=== PATIENT | male | born 1945 | race Caucasian/White ===

== ENCOUNTER → 2024-01-10 12:48 | Outpatient (REF) | payer MEDICARE, SELFPAY | LOC: RAD 12:48 | PROVIDERS: ATTENDING PHYSICIAN Surgery Vascular Surgery; FAMILY PHYSICIAN Family Medicine | DX: I65.23 Occlusion and stenosis of bilateral carotid arteries (principal) | CPT/HCPCS: 93880 ==

== ENCOUNTER → 2024-07-17 10:57 | Outpatient (REF) | payer MEDICARE, SELFPAY | LOC: RAD 10:57 | PROVIDERS: ATTENDING PHYSICIAN Surgery Vascular Surgery; FAMILY PHYSICIAN Family Medicine | DX: I65.23 Occlusion and stenosis of bilateral carotid arteries (principal) | CPT/HCPCS: 93880 ==

== ENCOUNTER → 2024-07-24 12:26 | Outpatient (REF) | payer MEDICARE, SELFPAY ==
[2024-07-24 14:22] LABS: Blood Urea Nitrogen 31 mg/dl (9-20); Calcium 9.7 mg/dl (8.4-10.2); Carbon Dioxide 24 mmol/L (22-30); Chloride 103 mmol/L (98-107); Glucose 121 mg/dl (70-99); Potassium 5.1 mmol/L (3.5-5.1); Sodium 140 mmol/L (135-145); eGFR > 60.00
== END ==
LOC: REG 12:26
PROVIDERS: ATTENDING PHYSICIAN Registered Nurse; FAMILY PHYSICIAN Family Medicine
DX: I65.23 Occlusion and stenosis of bilateral carotid arteries (principal)
CPT/HCPCS: 36415; 80048

== ENCOUNTER → 2024-08-06 12:22 | Outpatient (REF) | payer MEDICARE, SELFPAY ==
[2024-08-06 13:40] LABS: Blood Urea Nitrogen 28 mg/dl (9-20); Calcium 9.4 mg/dl (8.4-10.2); Carbon Dioxide 21 mmol/L (22-30); Chloride 105 mmol/L (98-107); Glucose 119 mg/dl (70-99); Potassium 4.5 mmol/L (3.5-5.1); Sodium 142 mmol/L (135-145); eGFR > 60.00
== END ==
LOC: REG 12:22
PROVIDERS: ATTENDING PHYSICIAN Registered Nurse; FAMILY PHYSICIAN Family Medicine
DX: I65.23 Occlusion and stenosis of bilateral carotid arteries (principal)
CPT/HCPCS: 36415; 80048

== ENCOUNTER → 2024-08-13 11:02 | Outpatient (REF) | payer MEDICARE, SELFPAY | LOC: RAD 11:02 | PROVIDERS: ATTENDING PHYSICIAN Registered Nurse; FAMILY PHYSICIAN Family Medicine | DX: I65.23 Occlusion and stenosis of bilateral carotid arteries (principal) | CPT/HCPCS: 70496; 70498; Q9967 ==

== ENCOUNTER → 2024-09-16 14:01 | Outpatient (REF) | payer MEDICARE, SELFPAY | LOC: RCS 14:01 | PROVIDERS: ATTENDING PHYSICIAN Internal Medicine Cardiovascular Disease; FAMILY PHYSICIAN Family Medicine | DX: I35.0 Nonrheumatic aortic (valve) stenosis (principal); I34.0 Nonrheumatic mitral (valve) insufficiency | CPT/HCPCS: 93306 ==

== ENCOUNTER 2024-09-22 08:47 | Inpatient (IN) | payer MEDICARE, SELFPAY ==
[2024-09-17 10:59] LABS: % Basophils 0.4 % (0-2); % Eosinophils 2.3 % (0-6); % Immature Granulocytes 0.4 % (0-0.5); % Lymphocytes 13.7 % (20.5-51.1); % Monocytes 16.8 % (1.7-9.3); % Neutrophils 66.4 % (42.2-75.2); Absolute Eosinophils 0.2 10^3/uL (0-0.7); Absolute Lymphocytes 1.1 10^3/uL (1.2-3.4); Absolute Monocytes 1.3 10^3/uL (0.1-0.6); Absolute Neutrophils 5.1 10^3/uL (1.4-6.5); Hematocrit 38.4 % (39.0-52.0); Hemoglobin 13.2 g/dL (13.0-18.0); Mean Corp Hgb Conc. 34.4 g/dL (33.0-37.0); Mean Corpuscular Hgb 33.6 pg (27.0-31.0); Mean Corpuscular Volume 97.7 fL (80.0-94.0); Mean Platelet Volume 9.2 fL (7.4-10.4); Nucleated Red Blood Cells % 0 % (-); Platelet Count 171 10^3/uL (130-400); Red Blood Cell Count 3.93 10^6/uL (4.70-6.10); Red Cell Dist. Width 12.1 % (11.5-14.5); White Blood Cell Count 7.7 10^3/uL (4.8-10.8)
[2024-09-17 11:06] LABS: Blood Urea Nitrogen 24 mg/dl (9-20); Calcium 9.6 mg/dl (8.4-10.2); Carbon Dioxide 27 mmol/L (22-30); Chloride 103 mmol/L (98-107); Glucose 135 mg/dl (70-99); Potassium 4.8 mmol/L (3.5-5.1); Sodium 141 mmol/L (135-145); eGFR > 60.00
[2024-09-17 11:07] LABS: INR 1.02; PT 13.5 Sec (11.4-14.6)
[2024-09-17 11:08] LABS: APTT 29.6 Sec (23.4-35.0)
[2024-09-17 11:51] VITALS: BMI 28.3
[2024-09-22] VITALS (22 sets, daily range): BP systolic 96–149; BP diastolic 39–92; BMI 26.4
[2024-09-22] MEDS: PERIDEX 0.12% ORAL RINSE 15 ML PO (09:54)
[2024-09-22] MEDS: NSS 500 IV (09:54)
[2024-09-22] MEDS: BACTROBAN NASAL 1 GRAM NASAL (09:54)
--- NOTE | 2024-09-22 10:32 | W.SUR.PREOP ---
Pre-Operative Surgical Note
-
I have examined this patient prior to the performance of the scheduled procedure.
The patient's condition is unchanged from the time of the current History and
Physical and the patient is able to undergo the scheduled procedure.
[2024-09-22 12:47] LABS: ACT-LR - POC 295 Seconds (116-155)
[2024-09-22 13:36] LABS: ACT-LR - POC 224 Seconds (116-155)
--- NOTE | 2024-09-22 14:21 | OR.RPT ---
Operative Report
Operative Report
Date of Operation: 09/22/2024
Pre Op Diagnosis: Asymptomatic high-grade stenosis of the left internal carotid artery
Post Op Diagnosis: Asymptomatic high-grade stenosis of the left internal carotid artery
Procedure: LEFT carotid endarterectomy with patch angioplasty using bovine pericardium
Surgeon: Khoi Orozco III, MD
Hazardous Material Specialist: Haris Barron MD PhD, PGY2
Anesthesia: General
Complications: None
History and Indications for Procedure: 79-year-old male with asymptomatic high-grade carotid artery stenosis on the left
Procedure in Detail: Jose Barraza was correctly identified and placed supine on the operating table. After adequate induction of anesthesia the left neck was positioned, prepped and draped in the usual sterile fashion. Preoperative antibiotics were
administered. A timeout procedure was performed with the nursing and anesthesia staff confirming the patients identity as well as the nature and laterality of the procedure.
The carotid bifurcation was marked with ultrasound at the beginning of the case. The incision was planned accordingly. An incision was made along the anterior border of the left sternocleidomastoid muscle. Electrocautery was used to divide the
subcutaneous tissue and platysma. The carotid sheath was entered with sharp dissection. The internal jugular vein was retracted laterally. The vagus nerve was identified and protected throughout the case. The common carotid artery was identified at
the base of this incision and carefully encircled with a vessel loop. The patient was systemically heparinized. The dissection was continued distally towards the carotid bifurcation. The facial vein was skeletonized, ligated and divided between ties
and clips. The proximal external carotid artery was encircled with a vessel loop. The distal internal carotid artery was encircled with a vessel loop at a soft spot on the artery beyond the plaque. The hypoglossal nerve was identified and protected.
The internal vessel loop was secured followed by the common and external. An arteriotomy was made on the distal common carotid artery with an 11-blade. This was extended proximally and distally with Rizvi scissors. The arteriotomy was extended
distally through the plaque to an area of normal appearing internal carotid artery. The distal vessel loop was replaced with a short tip hockey-stick type vascular clamp. An endarterectomy was performed with a [place] elevator in the standard
fashion. The proximal extent of the plaque was transected with scissors. The distal end of the plaque in the internal carotid artery feathered however there was a distal intimal flap identified. This was tacked down with 2 interrupted 7-0 Prolene
sutures along the posterior wall with a nice result. The plaque extending into the external carotid artery was everted. Once the plaque was fully removed the endarterectomy plane was irrigated with heparinized saline and any loose fronds of tissue
were removed. A pre-cut piece of bovine pericardium was sewn in place using a running 6-0 Prolene suture. Prior to the completion of the patch the common carotid was allowed to forward bleed and the external was allowed to back bleed. The area under
the patch was irrigated with heparinized saline to remove any potential thrombus or debris. The anastomosis was completed.
The external vessel loop was released first, followed by the common and then the internal. There was an excellent pulse in the distal internal carotid artery. An excellent quality Doppler signal in the distal internal carotid artery was also
confirmed. The patch suture line was closely inspected for hemostasis and was achieved. Protamine was administered. Hemostasis was achieved in the wound bed. The wound was irrigated with saline solution.
The wound was then closed in layers. Sterile dressings were applied. The patient awoke from anesthesia with no immediate neuro deficits and was taken to the PACU in stable condition.
attestation: I was present and responsible for the entire procedure
Signed:
Khoi Orozco III, MD
[facility]
[phone] (cell)
[2024-09-22 14:56] LABS: Hematocrit 33.3 % (39.0-52.0); Mean Corpuscular Hgb 33.2 pg (27.0-31.0); Mean Corpuscular Volume 92.2 fL (80.0-94.0); Mean Platelet Volume 8.9 fL (7.4-10.4); Platelet Count 148 10^3/uL (130-400); Red Blood Cell Count 3.61 10^6/uL (4.70-6.10); Red Cell Dist. Width 11.9 % (11.5-14.5); White Blood Cell Count 10.2 10^3/uL (4.8-10.8)
[2024-09-22 15:06] LABS: PT 14.1 Sec (11.4-14.6)
[2024-09-22 15:07] LABS: APTT 31.7 Sec (23.4-35.0)
--- NOTE | 2024-09-22 15:11 | CON.INTV ---
Consultation
Consultation Request
Date/Time Consultation Requested: 09/22/2024
Date/Time Consultation Performed: 09/22/2024
Requesting Provider: Dr. Orozco
Performing Provider: Dr. Ja Almaguer
Reason for Consultation: Left carotic endarterectomy with patch angioplasty
Medical History
Past Medical History
Past Medical History: Other (See assessment and plan section)
Social History
Tobacco: Non-smoker
Drug: None
Family History
Family History: Reviewed & Not Pertinent
Allergies / Home Medications
Allergies
Allergy/AdvReac Type Severity Reaction Status Date / Time
Sulfa (Sulfonamide Allergy Swelling Verified 10/09/21 16:23
Antibiotics)
Home Medications
�Medication �Instructions �Recorded �Confirmed �Last Taken �Type
aspirin 81 mg chewable tablet 81 mg PO QPM Blood clot 10/09/21 09/22/24 09/21/24 19:00 History
prevention/tx
cartilage 40 mg-collagen II 10 1 ea PO DAILY Supplement 10/09/21 09/22/24 09/21/24 10:00 History
mg-boron 5 mg-hyaluronate 3.3 mg
tablet (Joint Health)
coenzyme D16-hnmnhuz E 100 mg-5 1 ea PO DAILY Supplement 10/09/21 09/22/24 09/21/24 19:00 History
unit capsule (Co Q-10 (with Vit E))
cyanocobalamin (vitamin B-12) 1,000 mcg PO BID Supplement 10/09/21 09/22/24 09/21/24 19:00 History
1,000 mcg tablet
ezetimibe 10 mg tablet 10 mg PO QPM High cholesterol 10/09/21 09/22/24 09/21/24 19:00 History
lisinopril 20 mg tablet 20 mg PO DAILY Blood pressure 10/09/21 09/22/24 09/22/24 07:00 History
rosuvastatin 40 mg tablet (Crestor) 40 mg PO QPM High cholesterol 10/09/21 09/22/2424 19:00 History
acetaminophen 650 mg 1,300 mg PO Q12H PRN pain 09/15/24 09/15/24 Unknown History
tablet,extended release
ascorbic acid (vitamin C) 1,000 mg 1,000 mg PO DAILY 09/15/24 09/22/24 09/21/24 19:00 History
tablet (Vitamin C)
carvedilol 3.125 mg tablet 3.125 mg PO BID 09/15/24 09/22/24 09/22/24 07:00 History
hydrochlorothiazide 25 mg tablet 25 mg PO DAILY 09/15/24 09/22/24 09/22/24 07:00 History
czeyumu-czk-hnw S7-Z9-ycpwdkxw 250 1 tab PO BID 09/22/24 09/22/24 09/21/24 19:00 History
mg-40 mg-5 mg-125 unit tablet
cholecalciferol (vitamin D3) 25 25 mcg PO BID 09/22/24 09/22/24 09/21/24 19:00 History
mcg (1,000 unit) tablet (Vitamin
D3)
meloxicam 7.5 mg tablet 7.5 mg PO DAILY 09/22/24 09/22/24 09/21/24 10:00 History
Review of Systems
-
History Source: Patient
All other systems: Negative unless noted
Vitals / Labs / Diagnostic Testing
Vital Signs
Temp Pulse Resp BP Pulse Ox
97 F 61 13 115/44 98
09/22/24 14:35 09/22/24 14:45 09/22/24 14:45 09/22/24 14:45 09/22/24 14:45
Lab Data
09/22/24 14:46
Laboratory Results
09/22/24
14:46
PT 14.1
INR 1.10
APTT 31.7
Diagnostic Testing:
Physical Exam
-
HEENT: Normocephalic, Other ( No stridor on exam) and Other (Left cervical incision intact without hematoma.)
Cardiovascular: S1/S2
Respiratory: Non-Labored Respirations
GI: Soft and Non Distended
Neurology: Awake and Alert
Skin: Warm
General: Comfortable
Assessment
-
Status post left carotic endarterectomy 09/22/[address] Orozco
Conditions present prior admission:
History of myocardial infarction 1997
Hypertension
Hyperlipidemia
Type 2 diabetes
Carotid stenosis
Wrist fracture right arm 03/2024
-
Assessment and plan:
Postoperative surgical intensive care unit monitoring
Supplemental oxygen as needed
Incentive spirometry
Aspiration precautions
Nebulizers if needed-currently not bronchospastic
Chest x-ray 09/17/2024: Clear lungs
Neuro and vascular checks per protocol
Vascular surgery following-correspondence and operative notes reviewed
Monitor blood pressure
Restart outpatient medic
arterial line in place
Cardene drip if needed
Follow blood sugars
Insulin supplementation as needed
DVT prophylaxis
Early nutrition
Early mobilization
--- NOTE | 2024-09-22 15:15 | PTCARENOTE ---
Patient appears to be sleeping comfortably with eyes closed, lying still and respirations nonlabored. Saturating well on 50L/40% FiO2. ECHO performed at bedside. Awaiting interpretation. SR 60-70s on CM. BP stable. No c/o pain. Cesilia at
bedside.
[2024-09-22 15:16] LABS: Blood Urea Nitrogen 25 mg/dl (9-20); Calcium 8.7 mg/dl (8.4-10.2); Carbon Dioxide 23 mmol/L (22-30); Chloride 102 mmol/L (98-107); Estimated Creatinine Clearance 68 ml/min; Glucose 155 mg/dl (70-99); Potassium 5.1 mmol/L (3.5-5.1); Sodium 137 mmol/L (135-145); eGFR > 60.00
[2024-09-22] MEDS: NSS 1000 IV (15:56)
--- NOTE | 2024-09-22 16:30 | PTCARENOTE ---
Patient received from PACU at 1615 accompanied by WARREN Elias and ancillary staff member. Neuro check with PACU staff. Smile is equal, raises eyebrowsn, SPARKS, tongue midline. C/o mild left hand numbness/tingling, but grasps are equal. Received awake,
alert and oriented x 3. Thornton with good wave form, good square wave. Congruent with cuff BP. C/o 1/10 GRAHAM and left neck pain. Left neck incision CDI, dermabond intact, no drainage or swelling noted. Right FA IV site infiltrated, discontinued. IVF NS
started at 80cc/hr via LFA. Denies need to void at this time. Plan of care reveiwed. Call joseph in reach. Devora in to see patient.
[2024-09-22] MEDS: CRESTOR 40 MG PO (17:12)
[2024-09-22] MEDS: HEPARIN 5000 UNITS SC (17:12)
[2024-09-22] MEDS: ZETIA 10 MG PO (17:12)
[2024-09-22] MEDS: LOW STRENGTH ASPIRIN 81 MG PO (17:12)
[2024-09-22] MEDS: NEO-SYNEPHRINE 250 IV (17:45)
--- NOTE | 2024-09-22 17:55 | PTCARENOTE ---
Dr Orozco notified of patient altered sensation left hand with some numbness and tingling. Acknowledged.
--- NOTE | 2024-09-22 19:45 | PTCARENOTE ---
Report endorsed to oncoming shift. Neuro check at bedside. Questions answered.
--- NOTE | 2024-09-22 20:23 | W.IMMPOSTOP ---
Surgical Immed Post Op Note
-
Primary Surgeon: Dr. Khoi Orozco III, MD
Assisting Surgeon: Haris Barron MD, PhD (PGY-2)
Pre-op Diagnosis: Left carotid artery stenosis
Post-op Diagnosis: Left carotid artery stenosis
Procedure Performed: Left carotid endarterectomy
Anesthesia Type: General
Specimen / Cultures: None
Estimated Blood Loss: 100cc
Complications: None
Operative Findings: The patient was brought to the OR and placed in the supine position. After anesthesia induction, radial artery placement, and neuromonitoring initiation, the patient was prepped. Ultrasound was used to map the common carotid
artery and bifurcation. The patient was then draped in usual sterile fashion. Incision was made at the anterior border of the SCM. Electrocautery was performed through the platysma to expose the LIJV. The vagus nerve was identified. Sharp dissection
was performed to expose the left common carotid artery and proximal control was obtained with a vessel loop. Sharp dissection continued to expose the left internal carotid artery and left external carotid artery. Vessel loops were placed around
these vessel for distal control. Arteriotomy was made and a freer was used to perform the endarterectomy. A bovine pericardial patch was brought to the field and a patch angioplasty was performed with running 6-0 prolene suture. Prior to completing
the patch, the vessel was allowed to back and forward bleed. The vessel loops were removed from the external, then common, then internal carotid artery. Hemostasis was achieved. Doppler was performed and confirmed excellent flow in the left internal
and external carotid arteries. The wound bed was irrigated and closed with three layers of suture and skin glue at the surface. At the conclusion of the case, the patient demonstrated no new focal deficits, with intact CN12, facial motor, upper and
lower extremity motor function. The patient was transported to the PACU in stable condition.
--- NOTE | 2024-09-22 20:30 | PTCARENOTE ---
Resumed care of pt this evening. Received pt on citlalli gtt @ 20 mcg/min via left peripheral IV site. Pt is A&Ox3, can move all 4 extremities, and can make needs known. Pt's pupils are equal and reactive to light. Pt denies any paresthesias or loss of
sensation. Pt is SB w/ BBB on tele monitor, has trace edema on rt upper extremity, and B/L DPs are palpable. Pt on RA satting at 95% pulse ox. On auscultation pt lungs sound clear. Pt's abdomen is round has active BS. Pt voiding albert colored urine.
Left carotid surgical site is OLIVIA, surgical glue present.
[2024-09-22] MEDS: OSCAL 500 + D 250 MG PO (20:54)
[2024-09-22] MEDS: VITAMIN D3 (cholecalciferol) 25 MCG PO (20:55)
[2024-09-22 21:29] LABS: Blood Urea Nitrogen 25 mg/dl (9-20); Calcium 8.5 mg/dl (8.4-10.2); Carbon Dioxide 22 mmol/L (22-30); Chloride 103 mmol/L (98-107); Estimated Creatinine Clearance 64 ml/min; Glucose 147 mg/dl (70-99); Potassium 5.2 mmol/L (3.5-5.1); Sodium 138 mmol/L (135-145); eGFR > 60.00
[2024-09-23] VITALS (20 sets, daily range): BP systolic 91–149; BP diastolic 34–56; BMI 26.2
--- NOTE | 2024-09-23 00:30 | PTCARENOTE ---
Neurological checks unchanged from previous assessment. Surgical site remains intact.
[2024-09-23] MEDS: HEPARIN 5000 UNITS SC ×2 (01:27→08:45)
[2024-09-23] MEDS: NSS 1000 IV (04:16)
[2024-09-23 05:03] LABS: Hematocrit 32.3 % (39.0-52.0); Hemoglobin 11.2 g/dL (13.0-18.0); Mean Corp Hgb Conc. 34.7 g/dL (33.0-37.0); Mean Corpuscular Hgb 33.6 pg (27.0-31.0); Mean Platelet Volume 9.3 fL (7.4-10.4); Platelet Count 159 10^3/uL (130-400); Red Blood Cell Count 3.33 10^6/uL (4.70-6.10); Red Cell Dist. Width 11.8 % (11.5-14.5); White Blood Cell Count 10.7 10^3/uL (4.8-10.8)
[2024-09-23 05:08] LABS: INR 1.06; PT 13.6 Sec (11.4-14.6)
[2024-09-23 05:09] LABS: APTT 33.6 Sec (23.4-35.0)
[2024-09-23 05:20] LABS: Blood Urea Nitrogen 26 mg/dl (9-20); Calcium 8.6 mg/dl (8.4-10.2); Carbon Dioxide 21 mmol/L (22-30); Chloride 105 mmol/L (98-107); Estimated Creatinine Clearance 64 ml/min; Glucose 139 mg/dl (70-99); Potassium 4.7 mmol/L (3.5-5.1); Sodium 138 mmol/L (135-145); eGFR > 60.00
--- NOTE | 2024-09-23 06:20 | PTCARENOTE ---
Salvador gtt titrated up to 40mcg/min per protocol.
--- NOTE | 2024-09-23 07:56 | W.PN.VS ---
Addendum entered and electronically signed by Khoi Orozco III, MD 09/23/24 11:05:
This patient was seen and examined with JERALD Brewer. I agree with the history and physical exam as well as the assessment and plan.
Signed:
Khoi Orozco III, MD
[facility] V[facility] Surgery
[phone] (aejn)
Original Note:
Today's Communication / Plan
-
d/w Dr Orozco
Assessment/Plan
-
POD 1 LEFT carotid endarterectomy with patch angioplasty using bovine pericardium
Plan:
-DC [place]
-DC IVF
-OOB/ambulate
-Hold lisinopril, coreg this am for low bp/weaning Salvador
-Diet
-Possible DC later today
Subjective Data
-
Date of Service: September 23, 2024
Pt seen at bedside this am. No events overnight. Upset he was not able to sleep well d/t alarms/check-ins. Attempting to nap now. Salvador just weaned off.
Objective Data
-
Vital Signs
Temp Pulse Resp BP Pulse Ox
98.0 F 43 18 100/34 94
09/23/24 03:21 09/23/24 06:00 09/23/24 06:00 09/23/24 06:00 09/23/24 06:00
Intake and Output
09/22/24 09/23/24 09/24/24
06:59 06:59 06:59
Intake Total 1668 / 1668
Output Total 1620 / 1620
Balance 48 / 48
Intake:
Oral fluids 270 / 270
IV fluids (Total) 1398 / 1398
Nss 1,000 ml @ 80 mls/hr IV . 1120 / 1120
[id number] FRANSISCA Rx#:[id number]
salvador 78 / 78
normosol 200 / 200
Output:
Urine, Voided 1620 / 1620
Lab Results
09/23/24 04:32
09/23/24 04:32
Calcium 8.6 mg/dl (8.4-10.2) 09/23/24 04:32
Magnesium 2.0 mg/dl (1.6-2.3) 09/22/24 21:02
Physical Exam
-
AAOx3
No tachypnea
No tachycardia
Neck site c/d/i, soft, minimal swelling
Abd soft
Moves all extremities equally
Tongue midline
--- NOTE | 2024-09-23 08:00 | PTCARENOTE ---
pt awake and alert , denies co surgical pain, BP hypertensive at change of shift was on Neosynephrine gtt at 40mcg he was weaned off by 0900 , current BP 97/56 , his HR 35-50 , asymptomatic , L neck incision with surgical glue , no ecchymosis , pt
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
[2024-09-23 08:11] LABS: Glucose - Point of Care 149 mg/dl (70-99)
[2024-09-23] MEDS: VITAMIN C 1000 MG PO (08:45)
[2024-09-23] MEDS: VITAMIN D3 (cholecalciferol) 25 MCG PO (08:45)
[2024-09-23] MEDS: OSCAL 500 + D 250 MG PO (08:46)
--- NOTE | 2024-09-23 09:46 | CM ---
CM following re: discharge planning.
Reviewed pt's chart, met with pt.
Pt is an 79 year old male, admitted with primary dx of POD 1 LEFT carotid endarterectomy. Per Vascular surgery, pt most likely will be discharged home today. Pt is aware, expressed his agreement and pt stated his spouse will transport home. IMM
reviewed, placed on chart, pt has a copy.
Pt reports he lives with spouse 1SH, no steps, has 2 supportive children. 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 No DME, VN or SNF history.
PCP: Jignesh Flores
Pharmacy: [facility]
D/C plan: home no needs. Spouse to transport.
--- NOTE | 2024-09-23 09:58 | W.PN.INTV ---
Today's Communication / Plan
Recommendations
Continue with postoperative care
Hopeful discharge later today
Assessment
-
Status post left carotic endarterectomy 09/22/[address] Orozco
Conditions present prior admission:
History of myocardial infarction 1997
Hypertension
Hyperlipidemia
Type 2 diabetes
Carotid stenosis
Wrist fracture right arm 03/2024
-
Assessment and plan:
Doing well postoperative day 1
Hemodynamically stable
Neurologically intact
Surgical incision without hematoma.
No stridor on exam.
Tolerating breakfast.
-
Postoperative surgical intensive care unit monitoring
Incentive spirometry
Aspiration precautions
Neuro and vascular checks per protocol
Vascular surgery following-correspondence and operative notes reviewed
Possible discharge later today
Hemodynamically stable-briefly on Salvador-Synephrine
Discontinue arterial line.
Follow blood sugars
Insulin supplementation as needed
DVT prophylaxis
-
Discharge planning if stable later today.
Critical care team will sign off.
Subjective Dataa
Subjective Data
Date of Service:
Date of Service: September 23, 2024
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
Subjective:
Denies headache, dizziness or blurry vision.
Tolerating diet
Review of Systems
General: Fever (n)
Cardiopulmonary: Dyspnea (none at rest)
GI: Abdominal Pain (n) and Nausea (n)
Neuro: Headache (n)
Objective Data
Data Reviewed
Vital Signs / I&O / Oxygen:
Vital Signs
Temp Pulse Resp BP Pulse Ox
98.2 F 80 18 97/56 94
09/23/24 08:08 09/23/24 08:46 09/23/24 06:00 09/23/24 08:46 09/23/24 06:00
Intake and Output
09/22/24 09/23/24 09/24/24
06:59 06:59 06:59
Intake Total 1668 / 1668
Output Total 1620 / 1620
Balance 48 / 48
SaO2 94
Physical Exam
General: Comfortable
HEENT: Normocephalic, Other (No stridor on exam) and Other (Left cervical incision intact.)
Cardiovascular: S1-S2
Respiratory: Non-Labored Respirations
GI: Soft and Non Distended
Neurology: Awake, Alert, AO x 3 and No Motor Deficits
Labs/Micro/Reports
Lab Data
09/23/24 04:32
09/23/24 04:32
Laboratory Results
09/22/24 09/23/24
14:46 04:32
PT 14.1 13.6
INR 1.10 1.06
APTT 31.7 33.6
--- NOTE | 2024-09-23 11:18 | PTCARENOTE ---
pt ambulating in hallway with assistance without difficulty , pt tolerating diet , current HR 60 NSR and BP 98/51
[2024-09-23 12:02] LABS: Glucose - Point of Care 167 mg/dl (70-99)
--- NOTE | 2024-09-23 14:12 | PTCARENOTE ---
pt written for DC to home , pt given DC instructions and verbalized understanding , pt aware to hold all BP medications with a systolic BP of < 100 , current BP 131/49 and IVs removed
== END 2024-09-23 14:15 | disposition home or self-care (01) | DRG 39 ==
LOC: ICU 08:47
PROVIDERS: Nurse Practitioner Acute Care; Nurse Practitioner Primary Care; ADMITTING PHYSICIAN Surgery Vascular Surgery; CONSULT PHYSICIAN Internal Medicine Critical Care Medicine; FAMILY PHYSICIAN Family Medicine
PROC: 03CL0ZZ Extirpation of Matter from Left Internal Carotid Artery, Open Approach (ICD-10-PCS; 2024-09-22)
PROC: 03UL0KZ Supplement Left Internal Carotid Artery with Nonautologous Tissue Substitute, Open Approach (ICD-10-PCS; 2024-09-22)
DX: I65.22 Occlusion and stenosis of left carotid artery (principal); I10 Essential (primary) hypertension; E11.9 Type 2 diabetes mellitus without complications; I25.10 Atherosclerotic heart disease of native coronary artery without angina pectoris; I44.7 Left bundle-branch block, unspecified; E78.00 Pure hypercholesterolemia, unspecified; I08.0 Rheumatic disorders of both mitral and aortic valves; I25.2 Old myocardial infarction; Z79.899 Other long term (current) drug therapy; Z79.82 Long term (current) use of aspirin; Z88.2 Allergy status to sulfonamides
CPT/HCPCS: 88304; 88311; 35301; 36415; 71045; 71046; 80048; 82962; 83735; 85025; 85027; 85610; 85730; 93005; 95938; 95941; 95955

== ENCOUNTER 2024-09-26 11:16 | Emergency (ER) | payer MEDICARE, SELFPAY ==
[2024-09-26 11:18] VITALS: BP 168/55
[2024-09-26 11:43] VITALS: BP 114/48
[2024-09-26 11:58] VITALS: BMI 25.2
[2024-09-26 12:00] VITALS: BP 111/45
[2024-09-26 12:01] LABS: % Basophils 0.3 % (0-2); % Eosinophils 3.2 % (0-6); % Immature Granulocytes 0.4 % (0-0.5); % Monocytes 17.7 % (1.7-9.3); % Neutrophils 56.4 % (42.2-75.2); Absolute Eosinophils 0.2 10^3/uL (0-0.7); Absolute Lymphocytes 1.6 10^3/uL (1.2-3.4); Absolute Monocytes 1.3 10^3/uL (0.1-0.6); Absolute Neutrophils 4.2 10^3/uL (1.4-6.5); Hematocrit 34.1 % (39.0-52.0); Hemoglobin 11.5 g/dL (13.0-18.0); Mean Corp Hgb Conc. 33.7 g/dL (33.0-37.0); Mean Corpuscular Hgb 32.6 pg (27.0-31.0); Mean Corpuscular Volume 96.6 fL (80.0-94.0); Mean Platelet Volume 9.2 fL (7.4-10.4); Nucleated Red Blood Cells % 0 % (-); Platelet Count 167 10^3/uL (130-400); Red Blood Cell Count 3.53 10^6/uL (4.70-6.10); Red Cell Dist. Width 11.9 % (11.5-14.5); White Blood Cell Count 7.5 10^3/uL (4.8-10.8)
[2024-09-26 12:02] LABS: ALT (SGPT) 42 U/L (0-50); AST (SGOT) 36 U/L (17-59); Alkaline Phosphatase 45 U/L (38-126); Blood Urea Nitrogen 19 mg/dl (9-20); Calcium 8.9 mg/dl (8.4-10.2); Carbon Dioxide 27 mmol/L (22-30); Chloride 105 mmol/L (98-107); Glucose 133 mg/dl (70-99); Potassium 4.3 mmol/L (3.5-5.1); Sodium 143 mmol/L (135-145); Total Bilirubin 0.4 mg/dl (0.2-1.3); eGFR > 60.00
[2024-09-26 13:18] LABS: Erythrocyte Sed Rate 56 mm/hour (0-20)
[2024-09-26 13:31] VITALS: BP 140/43
[2024-09-26 14:00] VITALS: BP 119/44
--- NOTE | 2024-09-26 14:25 | ED.GENMED ---
History of Present Illness
General
Chief Complaint: Headache
Source: patient
Exam Limitations: none
Time Seen by Provider: 09/26/24 11:29
Nursing documentation reviewed up to this point in time: agreed with
History of Present Illness
History of Present Illness:
79-year-old male past medical history of CAD hypertension, vascular disease, diabetes recently had carotid endarterectomy 5 days ago described as a frontal throbbing headache describes it as 1 out of 10 in severity. No nausea vomiting numbness
weakness. Was sent in by vascular surgery for assessment.
Review of Systems
Review of Systems
Allergies reviewed?: Yes
All Other Systems: ROS reviewed and negative except as documented in HPI and ROS
Phy Exam
Physical Exam
Physical Exam:
GENERAL: Alert , in no apparent distress
EYE: pupils equal and reactive
NECK: Supple, no significant adenopathy.
ENT: o/p clr, mmm.
CARDIAC: Regular rate and rhythm .
LUNGS: Clear breath sounds bilaterally, no acute respiratory distress, no wheezes/rales/rhonchi
ABDOMEN: Soft, without focal tenderness, no r/g, no cvat
NEUROLOGICAL: Alert and oriented, no focal neuro deficits
SKIN: Warm and dry, skin intact.
MUSCULOSKELETAL: No edema, well perfused.
PSYCH: Normal and appropriate interaction.
Course
Orders/Labs/Results
Orders:
Orders
09/26/24 11:29
EKG [Electrocardiogram (*1)] Urgent
Reason for Study: Fatigue / Weakness
CT Head & Neck Angio W/wo IV Urgent
Comment:
Reason For Exam: s/p L CEA 09/22, GRAHAM since procedure
EKG- Treatment ONCE
09/26/24 11:39
CBC/With Diff [Complete Blood Count/With Diff] Urgent
CMP [Comprehensive Metabolic Panel] Urgent
ESR [Erythrocyte Sed Rate] Urgent
Abnormal Lab Results
09/26/24
11:39
RBC 3.53 L 10^6/uL
(4.70-6.10)
Hgb 11.5 L g/dL
(13.0-18.0)
Hct 34.1 L %
(39.0-52.0)
MCV 96.6 H fL
(80.0-94.0)
MCH 32.6 H pg
(27.0-31.0)
Absolute Monos (auto) 1.3 H 10^3/uL
(0.1-0.6)
Monocytes % 17.7 H %
(1.7-9.3)
ESR 56 H mm/hour
(0-20)
Glucose 133 H mg/dl
(70-99)
09/26/24 11:39
09/26/24 11:39
Vital Signs
Initial and Last Documented VS:
Initial Vital Signs
Temp Pulse Resp BP Pulse Ox
98.3 F 54 16 168/55 98
09/26/24 11:18 09/26/24 11:18 09/26/24 11:18 09/26/24 11:18 09/26/24 11:18
Last Documented Vital Signs
Temp Pulse Resp BP Pulse Ox
98.3 F 51 14 119/44 96
09/26/24 11:18 09/26/24 14:30 09/26/24 14:30 09/26/24 14:00 09/26/24 14:30
MDM/Problems Addressed
MDM/Problems Addressed:
79-year-old male presenting to the emergency department with concerns of a mild frontal headache described as 1 out of 10 in severity no associated symptoms since getting an endarterectomy the left side 5 days ago. Here vital signs are normal blood
pressure in the 110s over 40s. Heart rate of 50. Patient with normal neurologic evaluation labs unremarkable. Initial call and was requesting CT angiogram this was performed without acute abnormalities. Case then discussed with vascular who
feels that additional testing is likely unnecessary considering he appears very well and clinically does not have symptoms of hyperperfusion syndrome. Blood pressure is normal here. In no distress stable for discharge return precautions given.
*Critical Care Note
Total Time (30-74mins, 75-104mins- exclusive of procedures): Not Applicable
ED Attending Note
-
Portions of this chart may have been created with voice recognition software.� Occasional wrong word or��sound alike� substitutions may have occurred due to the inherent limitations of voice recognition software.
Discharge Plan
Departure
Patient Disposition: Home (Routine Discharge)
Date of Disposition: 09/26/24
Time of Disposition: 15:17
Patient with high blood pressure during this ER visit?: No
Condition: Good
Covid-19: Not Applicable
Discharge Problem:
Headache, Sinusitis
Instructions: Headache, Adult (DC)
Prescriptions:
New
fluticasone propionate [Flonase Allergy Relief] 50 mcg/actuation spray,suspension
1 spray intranasal BID Qty: 16 0RF
No Action
cyanocobalamin (vitamin B-12) 1,000 MCG tablet
1,000 mcg PO BID
aspirin 81 MG tablet,chewable
81 mg PO QPM
ezetimibe 10 MG tablet
10 mg PO QPM
rosuvastatin [Crestor] 40 MG tablet
40 mg PO QPM
coenzyme Z04-fstsord E [Co Q-10 (with Vit E)] 1 EACH capsule
1 ea PO DAILY
Joint Health 1 EACH tablet
1 ea PO DAILY
ascorbic acid (vitamin C) [Vitamin C] 1,000 mg Tablet
1,000 mg PO DAILY
acetaminophen 650 mg Tablet Extended Release
1,300 mg PO Q12H PRN (Reason: pain)
meloxicam 7.5 mg Tablet
7.5 mg PO DAILY
oeqlnrq-eqh-oxu G1-M7-sxyyvmue 852-61-8-125 rw-is-qq-unit Tablet
1 tab PO BID
cholecalciferol (vitamin D3) [Vitamin D3] 25 mcg (1,000 unit) Tablet
25 mcg PO BID
lisinopril 20 MG tablet
20 mg PO DAILY Qty: 1 0RF
Rx Instructions:
HOLD medication for systolic blood pressure <100
carvedilol 3.125 mg Tablet
3.125 mg PO BID Qty: 1 0RF
Rx Instructions:
Hold medication for systolic blood pressure <100
hydrochlorothiazide 25 mg Tablet
25 mg PO DAILY Qty: 1 0RF
Rx Instructions:
hold medication for systolic blood pressure <100
Referrals:
Jignesh Girard MD [Family Provider] -
Activity Restrictions/Additional Instructions:
You came to the emergency department today with concerns of ongoing headache. Here your reassuring assessment please follow closely with vascular surgery. Return to the emergency department for any worsening, new or concerning symptoms.
Interventions
Interventions:
*Risk Screen - Suicide Last Done: 09/26/24 11:58
*General Assessment Last Done: 09/26/24 11:58
*Neglect/Abuse Screening Last Done: 09/26/24 11:58
*Nursing Disposition Last Done: 09/26/24 14:52
ED- Neurological Assessment Last Done: 09/26/24 11:58
Discharge Date and Time
Print Language: MAURITANIAN
== END 2024-09-26 15:35 | disposition home or self-care (01) ==
LOC: EMR 11:16
PROVIDERS: Physician Assistant; EMERGENCY PHYSICIAN Student in an Organized Health Care Education/Training Program; FAMILY PHYSICIAN Family Medicine
DX: R51.9 Headache, unspecified (principal); J32.9 Chronic sinusitis, unspecified; I25.10 Atherosclerotic heart disease of native coronary artery without angina pectoris; I10 Essential (primary) hypertension; E11.59 Type 2 diabetes mellitus with other circulatory complications
CPT/HCPCS: 99284; 70496; 70498; 80053; 85025; 85652; 93005; Q9967

== ENCOUNTER → 2024-10-30 10:26 | Outpatient (REF) | payer MEDICARE, SELFPAY | LOC: DHVS 10:26 | PROVIDERS: ATTENDING PHYSICIAN Registered Nurse; FAMILY PHYSICIAN Family Medicine | DX: I65.22 Occlusion and stenosis of left carotid artery (principal) | CPT/HCPCS: 93880 ==

== ENCOUNTER → 2025-05-12 14:03 | Outpatient (REF) | payer MEDICARE, SELFPAY | LOC: RAD 14:03 | PROVIDERS: ATTENDING PHYSICIAN Surgery Vascular Surgery; FAMILY PHYSICIAN Family Medicine | DX: I65.22 Occlusion and stenosis of left carotid artery (principal) | CPT/HCPCS: 93880 ==

== ENCOUNTER → 2025-10-20 09:02 | Outpatient (REF) | payer MEDICARE, SELFPAY | LOC: RAD 09:02 | PROVIDERS: ATTENDING PHYSICIAN Registered Nurse; FAMILY PHYSICIAN Family Medicine | DX: I65.22 Occlusion and stenosis of left carotid artery (principal) | CPT/HCPCS: 93880 ==